=== PATIENT | female | born 1990 | race Caucasian/White ===

== ENCOUNTER 2020-07-08 17:37 | Inpatient (IN) | payer MEDICAID ==
[~2020-07-08] VITALS: Ht 162.6 cm; Wt 61.8 kg
[2020-07-08] MEDS ORDERED: DiphenhydrAMINE HCL 25 MG CAPSULE PO PRN (21:15)
[2020-07-08] MEDS ORDERED: HALOPERIDOL 1 MG TABLET PO PRN (21:15)
[2020-07-08] MEDS ORDERED: ACETAMINOPHEN 500 MG TABLET PO PRN (21:15)
[2020-07-08] MEDS ORDERED: MELATONIN 3 MG TABLET PO PRN (21:15)
[2020-07-08] MEDS ORDERED: ZOLPIDEM TARTRATE 10 MG TABLET PO PRN (22:15)
[2020-07-08] MEDS ORDERED: HALOPERIDOL 5 MG TABLET PO PRN (22:15)
[2020-07-09 00:39] LABS: COVID AG,FIA SOURCE NASOPHARYNGEAL
[2020-07-09 03:15] VITALS: BP 131/80
[2020-07-09 08:15] VITALS: BP 118/66
[2020-07-09 08:17] LABS: EOSINOPHILS % (AUTO) 1.3 % (1.0-6.0); HEMATOCRIT 36.7 % (36-46); HEMOGLOBIN 11.6 g/dL (12.0-16.0); LYMPHOCYTES # (AUTO) 2.3 K/uL (1.0-4.8); LYMPHOCYTES % (AUTO) 46.8 % (22.0-44.0); MEAN CORPUSCULAR HEMOGLOBIN 23.8 pg (26.0-34.0); MEAN CORPUSCULAR HGB CONC 31.6 G/dL (31.0-37.0); MEAN CORPUSCULAR VOLUME 75 fL (80-100); MONOCYTES # (AUTO) 0.4 K/uL (0.1-1.0); MONOCYTES % (AUTO) 8.9 % (2.0-9.0); NEUTROPHILS # (AUTO) 2.1 K/uL (1.8-7.7); PLATELET COUNT (AUTO) 337 K/uL (150-450); RED BLOOD CELL COUNT(AUTO) 4.87 MIL/uL (4.00-5.20)
[2020-07-09 08:32] LABS: HEMOGLOBIN A1C 5.8 % (3.8-5.6)
[2020-07-09 08:41] LABS: ALANINE AMINOTRANSFERASE 23 U/L (12-78); ALBUMIN 4.1 g/dL (3.4-5.0); ALKALINE PHOSPHATASE 74 U/L (46-116); ANION GAP 14 mmol/L (8-16); ASPARTATE AMINOTRANSFERASE 22 U/L (15-37); BILIRUBIN,TOTAL 0.6 mg/dL (0.1-1.0); CALCIUM, TOTAL 8.7 mg/dL (8.8-10.5); CARBON DIOXIDE 23 mmol/L (22-29); CHLORIDE 102 mmol/L (98-107); CHOL/HDL RATIO 2.6 (3.9-5.7); CHOLESTEROL 180 mg/dL (131-200); CREATININE 0.62 mg/dL (0.60-1.30); GLOMERULAR FILTR. RATE CALC > 60 mL/min (>60); GLUCOSE,RANDOM 75 mg/dL (70-110); HDL CHOLESTEROL 68 mg/dL (40-60); LDL CHOL (CALC.) 101 mg/dL (0-130); SODIUM SERUM 139 mmol/L (136-145); THYROID STIMULATING HORMONE 1.52 uIU/mL (0.36-3.74); TOTAL PROTEIN, SERUM 7.2 g/dL (6.4-8.2); TRIGLYCERIDES 54 mg/dL (15-150); UREA NITROGEN, BLOOD 6 mg/dL (7-18)
[2020-07-09] MEDS: OLANZapine 5 MG TABLET PO SCH ×2 (10:00→20:31)
[2020-07-09 16:09] VITALS: BP 122/68
[2020-07-09] MEDS ORDERED: POTASSIUM CHLORIDE 20 MEQ ER TABLET PO ONE (16:15)
[2020-07-10 05:53] VITALS: BP 128/73
[2020-07-10 08:31] VITALS: BP 120/83
[2020-07-10] MEDS: OLANZapine 5 MG TABLET PO SCH ×2 (09:41→20:08)
[2020-07-10] MEDS: LORazepam 1 MG TABLET PO PRN (17:10)
[2020-07-10 17:17] VITALS: BP 121/75
[2020-07-11 01:17] VITALS: BP 114/72
[2020-07-11 08:27] VITALS: BP 119/70
[2020-07-11] MEDS: OLANZapine 5 MG TABLET PO SCH (08:34)
[2020-07-11] MEDS: FLUoxetine HCL 20 MG CAPSULE PO SCH (10:29)
[2020-07-11 16:22] VITALS: BP 102/64
[2020-07-11] MEDS: OLANZapine 10 MG TABLET PO SCH (21:06)
[2020-07-12 00:47] VITALS: BP 100/67
[2020-07-12 08:13] VITALS: BP 108/70
[2020-07-12] MEDS: OLANZapine 10 MG TABLET PO SCH ×2 (08:47→20:23)
[2020-07-12] MEDS: FLUoxetine HCL 20 MG CAPSULE PO SCH (08:47)
[2020-07-12 17:09] VITALS: BP 107/84
[2020-07-13 00:45] VITALS: BP 102/76
[2020-07-13 08:04] VITALS: BP 100/78
[2020-07-13] MEDS: OLANZapine 10 MG TABLET PO SCH ×2 (08:05→20:21)
[2020-07-13] MEDS: FLUoxetine HCL 20 MG CAPSULE PO SCH (08:05)
[2020-07-13 16:04] VITALS: BP 106/70
[2020-07-14 01:17] VITALS: BP 101/63
[2020-07-14 08:20] VITALS: BP 115/66
[2020-07-14] MEDS: OLANZapine 10 MG TABLET PO SCH ×2 (08:24→20:11)
[2020-07-14] MEDS: FLUoxetine HCL 20 MG CAPSULE PO SCH (08:24)
[2020-07-14 16:09] VITALS: BP 102/60
[2020-07-15 00:12] VITALS: BP 106/66
[2020-07-15 08:20] VITALS: BP 118/69
[2020-07-15] MEDS: OLANZapine 10 MG TABLET PO SCH ×2 (08:23→20:16)
[2020-07-15] MEDS: FLUoxetine HCL 20 MG CAPSULE PO SCH (08:23)
[2020-07-15 16:12] VITALS: BP 114/83
[2020-07-16 00:44] VITALS: BP 102/76
[2020-07-16 08:12] VITALS: BP 138/73
[2020-07-16] MEDS: FLUoxetine HCL 20 MG CAPSULE PO SCH (08:52)
[2020-07-16] MEDS: OLANZapine 10 MG TABLET PO SCH ×2 (08:52→20:04)
[2020-07-16 16:16] VITALS: BP 100/62
[2020-07-17 01:52] VITALS: BP 102/73
[2020-07-17] MEDS: OLANZapine 10 MG TABLET PO SCH ×2 (08:15→20:26)
[2020-07-17] MEDS: FLUoxetine HCL 20 MG CAPSULE PO SCH (08:15)
[2020-07-17 08:22] VITALS: BP 129/78
[2020-07-17 16:19] VITALS: BP 112/76
[2020-07-18 00:29] VITALS: BP 106/66
[2020-07-18 08:05] VITALS: BP 121/65
[2020-07-18] MEDS: FLUoxetine HCL 20 MG CAPSULE PO SCH (08:07)
[2020-07-18] MEDS: OLANZapine 10 MG TABLET PO SCH ×2 (08:07→20:54)
[2020-07-18 16:16] VITALS: BP 106/60
[2020-07-18] MEDS: LORazepam 1 MG TABLET PO PRN (16:23)
[2020-07-19 02:01] VITALS: BP_SYST 100; BP_SYST 133; BP_DIAS 64; BP_DIAS 96
[2020-07-19] MEDS: LORazepam 1 MG TABLET PO PRN ×2 (08:27→17:25)
[2020-07-19] MEDS: OLANZapine 10 MG TABLET PO SCH ×2 (08:27→20:14)
[2020-07-19] MEDS: FLUoxetine HCL 20 MG CAPSULE PO SCH (08:27)
[2020-07-19 08:32] VITALS: BP 136/79
[2020-07-19 16:28] VITALS: BP 101/68
[2020-07-20 00:38] VITALS: BP 106/66
[2020-07-20 08:19] VITALS: BP 120/74
[2020-07-20] MEDS: OLANZapine 10 MG TABLET PO SCH ×2 (08:41→21:07)
[2020-07-20] MEDS: LORazepam 1 MG TABLET PO PRN ×2 (08:41→17:25)
[2020-07-20] MEDS: FLUoxetine HCL 20 MG CAPSULE PO SCH (08:41)
[2020-07-20 16:10] VITALS: BP 115/69
[2020-07-21 00:31] VITALS: BP 113/66
[2020-07-21 08:17] VITALS: BP 109/61
[2020-07-21] MEDS: FLUoxetine HCL 20 MG CAPSULE PO SCH (08:19)
[2020-07-21] MEDS: OLANZapine 10 MG TABLET PO SCH ×2 (08:19→20:30)
[2020-07-21 16:26] VITALS: BP 128/62
[2020-07-21] MEDS: LORazepam 1 MG TABLET PO PRN (17:08)
[2020-07-22 00:30] VITALS: BP 110/73
[2020-07-22] MEDS: OLANZapine 10 MG TABLET PO SCH (08:01)
[2020-07-22] MEDS: FLUoxetine HCL 20 MG CAPSULE PO SCH (08:01)
[2020-07-22 08:06] VITALS: BP 132/70
[2020-07-22] MEDS ORDERED: OLAN10TA20 PO (09:20)
[2020-07-22] MEDS ORDERED: FLUO-191 PO (09:20)
== END 2020-07-22 13:49 | disposition home or self-care (01) | DRG 753 ==
LOC: CSU 18:30 → OBSVTOIN 18:30 → B3A 18:31
DX: F31.2 Bipolar disorder, current episode manic severe with psychotic features (principal); R45.851 Suicidal ideations; D64.9 Anemia, unspecified; F12.10 Cannabis abuse, uncomplicated; Z20.822 Contact with and (suspected) exposure to COVID-19; E87.6 Hypokalemia; F10.10 Alcohol abuse, uncomplicated
CPT/HCPCS: 80053; 80061; 83036; 84132; 84439; 84443; 84481; 85025; 87426

== ENCOUNTER 2021-07-25 14:52 | Inpatient (IN) | payer MEDICAID, OTHER ==
[~2021-07-25] VITALS: Ht 162.6 cm; Wt 61.2 kg
[~2021-07-25 14:52] MED LIST: FLUO-177 PO; OLAN10 PO
[2021-07-25 16:45] LABS: BASOPHILS % (AUTO) 0.9 % (0.0-2.0); EOSINOPHILS % (AUTO) 0.9 % (1.0-6.0); HEMATOCRIT 36.4 % (36-46); HEMOGLOBIN 11.3 g/dL (12.0-16.0); LYMPHOCYTES # (AUTO) 1.5 K/uL (1.0-4.8); LYMPHOCYTES % (AUTO) 27.6 % (22.0-44.0); MEAN CORPUSCULAR HEMOGLOBIN 21.5 pg (26.0-34.0); MEAN CORPUSCULAR HGB CONC 31.1 G/dL (31.0-37.0); MEAN CORPUSCULAR VOLUME 69 fL (80-100); MONOCYTES # (AUTO) 0.4 K/uL (0.1-1.0); MONOCYTES % (AUTO) 7.5 % (2.0-9.0); NEUTROPHILS # (AUTO) 3.5 K/uL (1.8-7.7); NEUTROPHILS % (AUTO) 63.1 % (40.0-70.0); PLATELET COUNT (AUTO) 429 K/uL (150-450); RED BLOOD CELL COUNT(AUTO) 5.26 MIL/uL (4.00-5.20); RED CELL DISTRIBUTION WIDTH 18.4 % (11.5-14.5)
[2021-07-25 17:00] LABS: ALANINE AMINOTRANSFERASE 24 U/L (12-78); ALBUMIN 4.2 g/dL (3.4-5.0); ALKALINE PHOSPHATASE 73 U/L (46-116); ANION GAP 10 mmol/L (8-16); ASPARTATE AMINOTRANSFERASE 25 U/L (15-37); BILIRUBIN,TOTAL 0.3 mg/dL (0.1-1.0); CARBON DIOXIDE 28 mmol/L (22-29); CHLORIDE 102 mmol/L (98-107); GLOMERULAR FILTR. RATE CALC > 60 mL/min (>60); GLUCOSE,RANDOM 106 mg/dL (70-110); SODIUM SERUM 140 mmol/L (136-145); TOTAL PROTEIN, SERUM 8.1 g/dL (6.4-8.2); UREA NITROGEN, BLOOD 3 mg/dL (7-18)
[2021-07-25 17:02] LABS: POTASSIUM 2.6 mmol/L (3.5-5.1)
[2021-07-25] MEDS ORDERED: POTASSIUM CHLORIDE 20 MEQ ER TABLET PO ONE (17:15)
[2021-07-25 18:21] LABS: COVID AG,FIA SOURCE NASOPHARYNGEAL
[2021-07-25] MEDS ORDERED: ZOLPIDEM TARTRATE 10 MG TABLET PO PRN (19:30)
[2021-07-25] MEDS ORDERED: LORazepam 2 MG TABLET PO PRN (19:30)
[2021-07-25] MEDS ORDERED: HALOPERIDOL 5 MG TABLET PO PRN (19:30)
[2021-07-26 10:00] VITALS: BP 147/67
[2021-07-26] MEDS ORDERED: MAG HYDROX/AL HYDROX/SIMETH ES 30 ML SUSPENSION UDCUP PO PRN (16:00)
[2021-07-26] MEDS ORDERED: NICOTINE 14 MG/24 HOUR PATCH TD PRN (16:00)
[2021-07-26] MEDS ORDERED: ONDANSETRON HCL 4 MG TABLET PO PRN (16:00)
[2021-07-26] MEDS ORDERED: DOCUSATE SODIUM 100 MG CAPSULE PO PRN (16:00)
[2021-07-26] MEDS ORDERED: PETROLATUM,WHITE 28 GM JELLY TP PRN (16:00)
[2021-07-26] MEDS ORDERED: MAGNESIUM HYDROXIDE SUSPENSION 30 ML UDCUP PO PRN (16:00)
[2021-07-26] MEDS ORDERED: GuaiFENesin/D-METHORPHAN [SUGAR-FREE] 200-20MG/10 ML SYRUP UDCUP PO PRN (16:00)
[2021-07-26] MEDS ORDERED: LOPERAMIDE HCL 2 MG CAPSULE PO PRN (16:00)
[2021-07-26] MEDS ORDERED: IBUPROFEN 400 MG TABLET PO PRN (16:00)
[2021-07-26] MEDS ORDERED: CloNIDine HCL 0.1 MG TABLET PO PRN (16:00)
[2021-07-26] MEDS ORDERED: ACETAMINOPHEN 325 MG TABLET PO PRN (16:00)
[2021-07-26] MEDS ORDERED: ALBUTEROL SULFATE HFA 90 MCG/PUFF 8 GM INHALER IH PRN (16:00)
[2021-07-26 16:22] VITALS: BP 134/85
[2021-07-27 08:00] VITALS: BP 134/80
[2021-07-27 16:38] VITALS: BP 132/82
[2021-07-27] MEDS: OLANZapine 10 MG TABLET PO SCH (21:00)
[2021-07-27] MEDS ORDERED: POTASSIUM CHLORIDE 20 MEQ ER TABLET PO ONE (21:00)
[2021-07-28] MEDS: FLUoxetine HCL 20 MG CAPSULE PO SCH (08:56)
[2021-07-28] MEDS: OLANZapine 10 MG TABLET PO SCH ×2 (20:25→20:29)
[2021-07-29 06:24] VITALS: BP 123/72
[2021-07-29] MEDS: FLUoxetine HCL 20 MG CAPSULE PO SCH (08:20)
[2021-07-29] MEDS: OLANZapine 10 MG TABLET PO SCH (20:22)
[2021-07-30] MEDS: FLUoxetine HCL 20 MG CAPSULE PO SCH (08:59)
[2021-07-30] MEDS: OLANZapine 10 MG TABLET PO SCH (21:00)
[2021-07-31] MEDS: FLUoxetine HCL 20 MG CAPSULE PO SCH (09:00)
[2021-07-31] MEDS: OLANZapine 10 MG TABLET PO SCH (20:40)
[2021-08-01] MEDS: FLUoxetine HCL 20 MG CAPSULE PO SCH (09:00)
[2021-08-01] MEDS: OLANZapine 10 MG TABLET PO SCH (20:31)
[2021-08-02] MEDS: FLUoxetine HCL 20 MG CAPSULE PO SCH (09:00)
[2021-08-02] MEDS: OLANZapine 10 MG TABLET PO SCH (20:35)
[2021-08-03] MEDS: FLUoxetine HCL 20 MG CAPSULE PO SCH (09:00)
[2021-08-03] MEDS: OLANZapine 10 MG TABLET PO SCH (21:00)
[2021-08-04] MEDS: FLUoxetine HCL 20 MG CAPSULE PO SCH (08:43)
[2021-08-04] MEDS: OLANZapine 10 MG TABLET PO SCH (20:29)
[2021-08-05] MEDS: FLUoxetine HCL 20 MG CAPSULE PO SCH (08:33)
[2021-08-05] MEDS: OLANZapine 10 MG TABLET PO SCH (20:29)
[2021-08-06] MEDS: FLUoxetine HCL 20 MG CAPSULE PO SCH (08:22)
[2021-08-06] MEDS: OLANZapine 10 MG TABLET PO SCH (20:30)
[2021-08-07] MEDS: FLUoxetine HCL 20 MG CAPSULE PO SCH (09:00)
[2021-08-07] MEDS: OLANZapine 10 MG TABLET PO SCH (20:15)
[2021-08-08] MEDS: FLUoxetine HCL 20 MG CAPSULE PO SCH (08:54)
== END 2021-08-08 12:40 | disposition home or self-care (01) | DRG 751 ==
LOC: EMS 14:52 → B2S 07-26 08:53
PROVIDERS: ADMIT Psychiatry & Neurology Child & Adolescent Psychiatry; ATTEND Psychiatry & Neurology Child & Adolescent Psychiatry
DX: F33.2 Major depressive disorder, recurrent severe without psychotic features (principal); R45.851 Suicidal ideations; Z91.19 Patient's noncompliance with other medical treatment and regimen; E87.6 Hypokalemia; F10.10 Alcohol abuse, uncomplicated; F41.9 Anxiety disorder, unspecified; F19.10 Other psychoactive substance abuse, uncomplicated; Y90.9 Presence of alcohol in blood, level not specified; Z20.822 Contact with and (suspected) exposure to COVID-19; D64.9 Anemia, unspecified; Z71.51 Drug abuse counseling and surveillance of drug abuser
CPT/HCPCS: 80053; 84132; 85025; 99285; G0480